=== PATIENT | female | born 1955 | race Two or more races ===

== ENCOUNTER 2023-10-22 19:32 | Emergency (ER) | payer OTHER, MEDICAID ==
[~2023-10-22] VITALS: Ht 167.6 cm; Wt 86.8 kg
[2023-10-22] MEDS ORDERED: HYDROcodone-ACET 5/325MG TAB PO ONE (21:45)
[2023-10-22 22:42] LABS: Alanine Aminotransferase 16 U/L (7-40); Albumin 4.4 g/dL (3.2-4.8); Alkaline Phosphatase 109 U/L (46-116); Anion Gap 7 (5-15); Aspartate Aminotransferase 22 U/L (13-40); BUN/Creatinine Ratio 17.7 (10.0-20.0); Blood Urea Nitrogen 17 mg/dL (9-23); Calcium 9.5 mg/dL (8.7-10.4); Carbon Dioxide 28 mmol/L (20-30); Chloride 105 mmol/L (98-107); Glucose 94 mg/dL (74-106); Potassium 3.9 mmol/L (3.5-5.1); Sodium 140 mmol/L (136-145)
[2023-10-22 22:43] LABS: Bilirubin, Total 0.6 mg/dL (0.2-1.0); Total Protein 7.6 g/dL (5.7-8.2)
[2023-10-22 22:56] LABS: Basophils # (auto) 0 10 ^3/uL (0-0.2); Basophils % (auto) 0.3 % (0.0-2.0); Eosinophils # (auto) 0.1 10 ^3/uL (0-0.8); Eosinophils % (auto) 1.3 % (0.0-7.0); Hematocrit 38.7 % (36.0-46.0); Hemoglobin 12.8 g/dL (12.2-16.2); Lymphocytes % (auto) 38.2 % (10.0-50.0); Mean Corpuscular Hemoglobin 30.4 pg (28.0-32.0); Mean Corpuscular Hgb Conc. 33.1 g/dL (32.0-36.0); Monocytes # (auto) 0.8 10 ^3/uL (0-1.3); Monocytes % (auto) 9.9 % (0.0-12.0); Neutrophils # (auto) 3.9 10 ^3/uL (1.6-8.6); Neutrophils % (auto) 50.3 % (37.0-80.0); Nucleated Red Blood Cells % 0.1 %; Red Blood Cells 4.21 10^6/uL (4.0-5.20); Red Cell Distribution Width 14.5 % (11.8-14.3); White Blood Cell 7.8 10^3/uL (4.4-10.8)
[2023-10-23] MEDS ORDERED: HYDR-4902 PO (03:02)
[2023-10-23 03:10] VITALS: BP 114/51; PULSE 60; RESP 16; TEMP 98.2; O2SAT 98
== END 2023-10-23 03:15 | disposition home or self-care (01) ==
LOC: ER 19:32
DX: S83.92XA Sprain of unspecified site of left knee, initial encounter (principal); S93.402A Sprain of unspecified ligament of left ankle, initial encounter; R60.0 Localized edema; I11.0 Hypertensive heart disease with heart failure; I50.9 Heart failure, unspecified; Z79.899 Other long term (current) drug therapy; Z88.8 Allergy status to other drugs, medicaments and biological substances; X58.XXXA Exposure to other specified factors, initial encounter; Y93.89 Activity, other specified; Y92.89 Other specified places as the place of occurrence of the external cause; Y99.8 Other external cause status
CPT/HCPCS: 36415; 73562; 73610; 73700; 80053; 83880; 84484; 85025; 93971

== ENCOUNTER 2023-11-07 13:58 | Inpatient (IN) | payer MEDICAID, OTHER ==
[~2023-11-07] VITALS: Ht 165.1 cm; Wt 90.4 kg
[~2023-11-07 13:58] MED LIST: HYDR-4902 PO
[2023-11-07 15:03] VITALS: PULSE 73; RESP 18; O2SAT 98
[2023-11-07 16:46] LABS: Basophils # (auto) 0 10 ^3/uL (0-0.2); Basophils % (auto) 0.6 % (0.0-2.0); Eosinophils # (auto) 0.1 10 ^3/uL (0-0.8); Hematocrit 38.5 % (36.0-46.0); Hemoglobin 12.7 g/dL (12.2-16.2); Lymphocytes # (auto) 2.2 10 ^3/uL (0.4-5.4); Lymphocytes % (auto) 32.3 % (10.0-50.0); Mean Corpuscular Hemoglobin 29.5 pg (28.0-32.0); Mean Corpuscular Hgb Conc. 32.8 g/dL (32.0-36.0); Monocytes # (auto) 0.8 10 ^3/uL (0-1.3); Monocytes % (auto) 11.4 % (0.0-12.0); Neutrophils # (auto) 3.7 10 ^3/uL (1.6-8.6); Neutrophils % (auto) 53.7 % (37.0-80.0); Nucleated Red Blood Cells % 0.1 %; Red Blood Cells 4.28 10^6/uL (4.0-5.20); Red Cell Distribution Width 14.1 % (11.8-14.3); White Blood Cell 6.9 10^3/uL (4.4-10.8)
[2023-11-07 16:52] LABS: Urine Bacteria NONE SEEN /hpf (None Seen); Urine Blood Negative /uL (Negative); Urine Clarity Clear (Clear); Urine Color Colorless (Yellow); Urine Hyaline Cast FEW /lpf (0 - 2); Urine Protein, UAD Negative (Negative); Urine Specific Gravity 1.007 (1.001-1.035); Urine Urobilinogen Normal (Negative); Urine WBC 1 /hpf (0 - 5); Urine pH 5.5 (5.0-8.0)
[2023-11-07 17:09] LABS: Alanine Aminotransferase 15 U/L (7-40); Albumin 4.3 g/dL (3.2-4.8); Alkaline Phosphatase 103 U/L (46-116); Anion Gap 5 (5-15); Aspartate Aminotransferase 24 U/L (13-40); Blood Urea Nitrogen 21 mg/dL (9-23); Calcium 9.8 mg/dL (8.5-10.1); Carbon Dioxide 29 mmol/L (20-30); Chloride 105 mmol/L (98-107); Glucose 87 mg/dL (74-106); Potassium 4.2 mmol/L (3.5-5.1); Sodium 139 mmol/L (136-145)
[2023-11-07 17:10] LABS: Bilirubin, Total 0.7 mg/dL (0.2-1.0); Total Protein 7.3 g/dL (5.7-8.2)
[2023-11-07] MEDS ORDERED: SODIUM CHLORIDE 0.9% 1,000 ML IV ONE (17:30)
[2023-11-07] MEDS ORDERED: ASPirin 81 mg TAB PO ONE (17:30)
[2023-11-07] MEDS ORDERED: ASPirin 81 mg TAB ONE (17:36)
[2023-11-07 19:30] VITALS: PULSE 73; RESP 12; O2SAT 99
[2023-11-07] MEDS ORDERED: ONDANSETRON HCL 4 MG/2 ML VIAL IV PRN (22:30)
[2023-11-07] MEDS ORDERED: MORPHINE SULFATE INJ 2 MG/ml SYRG IV PRN (22:30)
[2023-11-07] MEDS ORDERED: HYDROmorphone HCL 2 MG/ML VL/or syr IV PRN (22:30)
[2023-11-07] MEDS ORDERED: ACETAMINOPHEN 325 MG TAB PO PRN (22:30)
[2023-11-07] MEDS ORDERED: DOCUSATE SOD 100 MG CAP PO PRN (22:30)
[2023-11-07] MEDS ORDERED: HYDROcodone-ACET 5/325MG TAB PO PRN (22:30)
[2023-11-07] MEDS ORDERED: NITROGLYCERIN 0.4 MG SL TAB SL PRN (22:30)
[2023-11-08] VITALS (8 sets, daily range): BP systolic 103–126; BP diastolic 57–79; PULSE 56–75; RESP 16–20; TEMP 98.3–98.8; O2SAT 95–100
[2023-11-08] MEDS: CARVEDILOL 3.125 MG TAB PO SCH ×2 (10:00→21:29)
[2023-11-08] MEDS: APIXABAN 5 MG TAB PO SCH ×2 (10:09→21:28)
[2023-11-08] MEDS: SACUBITRIL-VALSARTAN 24mg/26mg TAB PO SCH ×2 (10:09→21:34)
[2023-11-08] MEDS: TORSEMIDE 20 MG TAB PO SCH (10:09)
[2023-11-08] MEDS ORDERED: SPIRONOLACTONE 25 MG TAB PO ONE (10:45)
[2023-11-08] MEDS ORDERED: PRAVASTATIN SODIUM 20 MG TAB PO SCH (22:00)
[2023-11-08] MEDS ORDERED: CARV12.544 PO (23:57)
[2023-11-08] MEDS ORDERED: TORS20TA20 PO (23:58)
[2023-11-08] MEDS ORDERED: SACU1TAB PO (23:59)
[2023-11-09] MEDS ORDERED: APIX5TAB PO
[2023-11-09] MEDS ORDERED: SPIR25TA8 PO
[2023-11-09] MEDS ORDERED: DAPA1TAB4 PO (00:01)
[2023-11-09] MEDS ORDERED: GABA-1250 PO (00:02)
[2023-11-09] MEDS ORDERED: PRAV20TA3 PO (00:04)
[2023-11-09 05:00] VITALS: BP 130/79; PULSE 64; RESP 20; TEMP 98.4; O2SAT 95
[2023-11-09 08:00] VITALS: PULSE 65; PULSE 72; RESP 19; O2SAT 98
[2023-11-09 09:03] VITALS: BP 126/85; PULSE 65; RESP 19; TEMP 98.7; O2SAT 98
[2023-11-09 09:16] LABS: Hepatitis B Surface Antigen Negative (Negative)
[2023-11-09 09:38] LABS: Hepatitis C Antibody Negative (Negative)
[2023-11-09] MEDS: APIXABAN 5 MG TAB PO SCH (09:54)
[2023-11-09] MEDS: CARVEDILOL 3.125 MG TAB PO SCH (09:54)
[2023-11-09] MEDS: TORSEMIDE 20 MG TAB PO SCH (09:55)
[2023-11-09] MEDS: SACUBITRIL-VALSARTAN 24mg/26mg TAB PO SCH (09:57)
[2023-11-09] MEDS ORDERED: SPIRONOLACTONE 25 MG TAB PO SCH (10:00)
[2023-11-09 13:27] VITALS: BP 103/69; PULSE 67; RESP 17; TEMP 98.1; O2SAT 94
[2023-11-09 15:27] VITALS: BP 103/69; PULSE 67; RESP 17; TEMP 98.1; O2SAT 94
[2023-11-09 16:57] VITALS: BP 105/70; PULSE 71; RESP 17; TEMP 98.2; O2SAT 94
== END 2023-11-09 16:34 | disposition home or self-care (01) | DRG 312 ==
LOC: ER 13:58 → EDBD 13:58 → TELE 22:18 → TELE-EAST 11-08 03:48
PROVIDERS: ADMIT Internal Medicine; ATTEND Internal Medicine
DX: R55 Syncope and collapse (principal); I25.810 Atherosclerosis of coronary artery bypass graft(s) without angina pectoris; I42.0 Dilated cardiomyopathy; I11.0 Hypertensive heart disease with heart failure; I50.9 Heart failure, unspecified; I95.89 Other hypotension; I49.3 Ventricular premature depolarization; Z95.2 Presence of prosthetic heart valve; Z95.810 Presence of automatic (implantable) cardiac defibrillator; Z86.711 Personal history of pulmonary embolism; Z86.718 Personal history of other venous thrombosis and embolism
CPT/HCPCS: 36415; 70450; 71046; 80053; 81001; 83735; 84443; 84484; 85025; 86803; 87081; 87340; 93005; 93306; 93886; G0378